=== PATIENT | female | born 2000 | race Caucasian/White ===

== ENCOUNTER → 2021-03-09 | Outpatient (CLI) | payer OTHER ==
[~2021-03-09] MED LIST: BACTROBAN CREAM15 GM TOP; CLEOCIN HCL300 MG PO; COLACE 100MG C100 MG PO; FLEXERIL 10 MG10 MG PO; IBUPROFEN600 MG PO; LORTAB 5-325 M1 EACH PO; NORCO 5-325 TA1 EACH PO; VIBRAMYCIN100 MG PO; ZANTAC 150 MG150 MG PO
== END ==
LOC: LAB 17:25
DX: Z32.00 Encounter for pregnancy test, result unknown (principal)
CPT/HCPCS: 84702